=== PATIENT | male | born 1950 | race Caucasian/White ===

== ENCOUNTER → 2017-09-12 | Outpatient (CLI) | payer MEDICARE, OTHER ==
[2015-02-21 19:25] VITALS: BP 122/69
--- NOTE | 2017-09-12 16:01 | RAD ---
Indication: Tobacco use heavy smoker. Technique: PA and lateral views of the chest Comparison: CT chest from 11/04/2015. Findings: Heart is normal in size. Lungs are clear. No pneumothorax or pleural effusion. Visualized bony thorax within normal limits. Impression: No acute cardiopulmonary process. Nodules seen on the previous CT chest from 11/04/2015 may be missed on plain radiograph. Consider CT chest without IV contrast for follow-up of the nodules.
== END | disposition home or self-care (01) ==
LOC: PMG 15:29
PROVIDERS: ATTEND Physician Assistant
DX: R91.1 Solitary pulmonary nodule (principal); I10 Essential (primary) hypertension; F17.200 Nicotine dependence, unspecified, uncomplicated
CPT/HCPCS: 71046

== ENCOUNTER → 2019-01-02 | Outpatient (CLI) | payer MEDICARE, OTHER ==
[2015-02-21 19:25] VITALS: BP 122/69
--- NOTE | 2019-01-02 16:38 | RAD ---
Carotid ultrasound, 01/02/2019: HISTORY: Near syncope Duplex evaluation of the carotid arteries and neck was performed including grayscale, color-flow and spectral Doppler analysis. There is mild smooth plaquing in the common carotid arteries and moderate plaquing at the carotid bifurcations. The plaques are partially calcified. The peak systolic velocity in the right internal carotid artery is 122 cm/s with an end-diastolic velocity of 40 cm/s and an internal carotid to common carotid artery ratio 1.7. These Doppler findings suggest narrowing in the 0-50 percent diameter range. On the left, the peak systolic velocity in the internal carotid artery is 173 cm/s with an end-diastolic velocity of 54 cm/s and an internal carotid to common carotid artery ratio of 2.2. These Doppler findings suggest narrowing in the 50-70 percent diameter range. Antegrade flow is present in both vertebral arteries in the neck. IMPRESSION: Mild to moderate atherosclerotic plaquing at the carotid bifurcations with underlying luminal narrowing of the proximal right internal carotid artery in the 0-50 percent diameter range and narrowing of the proximal left internal carotid artery in the 50-70 percent diameter range. Note: Stenosis calculations for CT, MRA and conventional angiography are based upon determination of the distal ICA diameter in accordance with the NASCET methodology. Stenosis calculations for Doppler studies are derived from validated velocity criteria which are known to correlate with NASCET methodology of determining stenosis. Electronically signed by: Anish Izaguirre MD (01/02/2019 4:35 PM) [facility]
== END | disposition home or self-care (01) ==
LOC: US 14:35
PROVIDERS: ATTEND Physician Assistant
DX: I65.23 Occlusion and stenosis of bilateral carotid arteries (principal); Z86.79 Personal history of other diseases of the circulatory system
CPT/HCPCS: 93880

== ENCOUNTER 2019-03-10 17:32 | Observation (INO) | payer MEDICARE, OTHER ==
[~2019-03-10] VITALS: Ht 175.3 cm; Wt 85.3 kg
--- NOTE | 2019-03-10 17:59 | PHYS DOC ---
Past History Past Medical History: Hypertension, Seizure (JOSE LENZ DO) Past Surgical History: No Surgical History (JOSE LENZ DO) Alcohol Use: Occasionally Drug Use: None (JOSE LENZ DO) Adult General Chief Complaint Chief Complaint: SEIZURE HPI HPI Patient is a 68-year-old male brought in by EMS due to reported seizure. EMS arrived, patient felt like he was going to black out while sitting on the EMS cot, and had another seizure in front of them that lasted approximately 10 seconds. As the patch machine operator was trying to get benzodiazepines, patient seizure stopped, and he was awake very quickly. He did have some shaking of all 4 extremities. There was no loss of bowel or bladder control. Patient was in the heat today, no significant exertion. He was also drinking several beers. Prior to the first seizure today, he felt like he was going to black out while sitting in the heat, and so went inside. He was witnessed to be going down and was caught by bystanders. There was no head injury. He denies any headache, focal weakness, nor change in vision. He does have a history of one previous seizure approximately a year ago. He is not currently on any antiseizure medicines. No recent changes in medicines. Denies any chest pain or palpitations.[] (JOSE LENZ DO) Review of Systems Review of Systems Constitutional: Denies fever or chills [] Eyes: Denies change in visual acuity, redness, or eye pain [] HENT: Denies nasal congestion or sore throat [] Respiratory: Denies cough or shortness of breath [] Cardiovascular: No chest pain or palpitations[] GI: Denies abdominal pain, nausea, vomiting, bloody stools or diarrhea [] : Denies dysuria or hematuria [] Musculoskeletal: Denies back pain or joint pain [] Integument: Denies rash or skin lesions [] Neurologic: Denies headache, focal weakness or sensory changes, see history of present illness [] Endocrine: Denies polyuria or polydipsia [] All other systems were reviewed and found to be within normal limits, except as documented in this note. (JOSE LENZ DO) Allergies Allergies Allergies Coded Allergies Type Severity Reaction Last Updated Verified No Known Drug Allergies 02/24/15 No (JOSE LENZ DO) Physical Exam Physical Exam Constitutional: Well developed, well nourished, no acute distress, non-toxic appearance. [] HENT: Normocephalic, atraumatic, bilateral external ears normal, oropharynx moist, no oral exudates, nose normal. [] Eyes: PERRLA, EOMI, conjunctiva normal, no discharge. [] Neck: Normal range of motion, no tenderness, supple, no stridor. [] Cardiovascular:Heart rate regular rhythm, no murmur [] Lungs & Thorax: Bilateral breath sounds clear to auscultation [] Abdomen: Bowel sounds normal, soft, no tenderness, no masses, no pulsatile masses. [] Skin: Warm, dry, no erythema, no rash. [] Back: No tenderness, no CVA tenderness. [] Extremities: No tenderness, no cyanosis, no clubbing, ROM intact, no edema. [] Neurologic: Alert and oriented X 3, normal motor function, normal sensory function, no focal deficits noted. [] Psychologic: Affect normal, judgement normal, mood normal. [] ([facility] Current Patient Data Vital Signs Vital Signs Date Time Temp Pulse Resp B/P (MAP) Pulse Ox O2 Delivery O2 Flow Rate FiO2 03/10/19 17:32 98.0 88 16 97 Room Air ([facility]) EKG EKG EKG shows a sinus rhythm at 83 bpm, normal axis, normal QTC at 426 ms, occasional premature atrial contraction, no ST elevations. No acute changes when compared with EKG of 02/21/2015. Interpreted by me at 1744.[] [facility] Radiology/Procedures Radiology/Procedures [] ([facility]) Impressions: CT head without contrast dated 03/10/2019. COMPARISON: None. Clinical indication: Syncopal event. Possible seizure. Weakness. TECHNIQUE: Contiguous axial imaging the head performed from skull base to vertex. No contrast administered. One or more of the following individualized dose reduction techniques were utilized for this examination: 1. Automated exposure control 2. Adjustment of the mA and/or kV according to patient size 3. Use of iterative reconstruction technique. FINDINGS: Ventricles and sulci are mildly prominent for age. No midline shift or mass effect. Brain parenchyma is of normal attenuation. No hemorrhage or extra-axial collection. Posterior fossa and brainstem unremarkable. Minimal mucosal thickening of the bilateral ethmoid air cells. The visualized paranasal sinuses and mastoid air cells are otherwise clear. No apparent calvarial abnormality. IMPRESSION: 1. No evidence of acute intracranial hemorrhage or mass. 2. Mild atrophy for age. Electronically signed by: Shawn Beltran MD (03/10/2019 6:10 PM) [facility] DICTATED AND SIGNED BY: SHAWN BELTRAN MD DATE: 03/10/19 1810 CC: WILMA MCKEON DO; JOSE LENZ DO; LINDA LUCERO ~ Single view chest dated 03/10/2019. Comparison made to 09/12/2017. CLINICAL INDICATION: Syncope. FINDINGS: Single upright portable exam performed. Heart and mediastinal contours are stable. Lungs are somewhat hyperinflated but otherwise clear. No consolidation or pleural effusion. No pneumothorax. IMPRESSION: No acute radiographic abnormality. Stable findings compared to 09/12/2017. Electronically signed by: Shawn Beltran MD (03/10/2019 6:39 PM) [facility] DICTATED AND SIGNED BY: SHAWN BELTRAN MD DATE: 03/10/19 1839 CC: WILMA MCKEON DO; JOSE LENZ DO; LINDA LUCERO ~ (WILMA MCKEON DO) Course & Med Decision Making Course & Med Decision Making Pertinent Labs and Imaging studies reviewed. (See chart for details) ED course: Patient arrived, was placed in bed, and tolerated exam well. At the time of this dictation laboratory and imaging studies are pending along with orthostatic vital signs. Patient care was endorsed to Dr. Mckeon at 1800 with these studies in progress.[] (JOSE LENZ DO) Course & Med Decision Making The patient's labs are remarkable for a hemoglobin of 9.9 and a lactic acid of 3.5. His only hemoglobin for comparison was 4 years ago and it was normal at 13.5. The patient has gotten 2 L of fluid. I spoke with Dr. Ramos, the neurologist and he would like the patient admitted. He has not requested a loading dose of seizure medicine as this case could be syncope versus seizure. I spoke with Dr. Jimenez and he has accepted the patient for admission. Patient is in agreement with admission. (WILMA MCKEON DO) Dragon Disclaimer Dragon Disclaimer This electronic medical record was generated, in whole or in part, using a voice recognition dictation system. (JOSE LENZ DO) Departure Departure: Impression: Primary Impression: Syncope Disposition: 09 ADMITTED INPATIENT Admitting Physician: Seth Jimenez (WILMA MCKEON DO) Referrals: LINDA LUCERO (PCP) Problem Qualifiers Primary Impression: Syncope Syncope type: unspecified Qualified Codes: R55 - Syncope and collapse JOSE LENZ DO Mar 10, 2019 17:59 WILMA MCKEON DO Mar 10, 2019 19:06
[2019-03-10] MEDS ORDERED: IV NORMAL SALINE 1,000ML 1,000 ML IV ONE (18:00)
[2019-03-10 18:02] LABS: BASO # 0.1 x10^3/uL (0.0-0.2); BASO % 1 % (0-3); EOS # 0.3 x10^3/uL (0.0-0.7); EOS % 3 % (0-3); HEMATOCRIT 31.6 % (39.0-53.0); HEMOGLOBIN 9.9 g/dL (13.0-17.5); LYMPH # 2.5 x10^3/uL (1.0-4.8); LYMPH % 25 % (24-48); MEAN CORPUSCULAR HEMOGLOBIN 25 pg (25-35); MEAN CORPUSCULAR HGB CONC 31 g/dL (31-37); MEAN CORPUSCULAR VOLUME 81 fL (79-100); MONO % 10 % (0-9); NEUT # 6.3 x10^3uL (1.8-7.7); NEUT % 62 % (31-73); PLATELET COUNT 406 x10^3/uL (140-400); RED BLOOD COUNT 3.92 x10^6/uL (4.30-5.70); RED CELL DISTRIBUTION WIDTH 20.3 % (11.5-14.5); WHITE BLOOD COUNT 10.2 x10^3/uL (4.0-11.0)
--- NOTE | 2019-03-10 18:12 | RAD ---
CT head without contrast dated 03/10/2019. COMPARISON: None. Clinical indication: Syncopal event. Possible seizure. Weakness. TECHNIQUE: Contiguous axial imaging the head performed from skull base to vertex. No contrast administered. One or more of the following individualized dose reduction techniques were utilized for this examination: 1. Automated exposure control 2. Adjustment of the mA and/or kV according to patient size 3. Use of iterative reconstruction technique. FINDINGS: Ventricles and sulci are mildly prominent for age. No midline shift or mass effect. Brain parenchyma is of normal attenuation. No hemorrhage or extra-axial collection. Posterior fossa and brainstem unremarkable. Minimal mucosal thickening of the bilateral ethmoid air cells. The visualized paranasal sinuses and mastoid air cells are otherwise clear. No apparent calvarial abnormality. IMPRESSION: 1. No evidence of acute intracranial hemorrhage or mass. 2. Mild atrophy for age. Electronically signed by: Shawn Beltran MD (03/10/2019 6:10 PM) [facility]
[2019-03-10 18:22] LABS: ALBUMIN 3.3 g/dL (3.4-5.0); ALBUMIN/GLOBULIN RATIO 0.8 (1.0-1.7); CALCIUM 8.8 mg/dL (8.5-10.1); CREATININE 0.9 mg/dL (0.7-1.3); GFR 83.4; POTASSIUM 3.4 mmol/L (3.5-5.1); TOTAL BILIRUBIN 0.2 mg/dL (0.2-1.0); TOTAL PROTEIN 7.3 g/dL (6.4-8.2)
--- NOTE | 2019-03-10 18:42 | RAD ---
Single view chest dated 03/10/2019. Comparison made to 09/12/2017. CLINICAL INDICATION: Syncope. FINDINGS: Single upright portable exam performed. Heart and mediastinal contours are stable. Lungs are somewhat hyperinflated but otherwise clear. No consolidation or pleural effusion. No pneumothorax. IMPRESSION: No acute radiographic abnormality. Stable findings compared to 09/12/2017. Electronically signed by: Shawn Beltran MD (03/10/2019 6:39 PM) [facility]
[2019-03-10 20:54] LABS: BILIRUBIN,URINE NEG (NEG); CLARITY,URINE CLEAR; COLOR,URINE STRAW; GLUCOSE,URINE NEG (NEG)
[2019-03-10 20:55] LABS: BACTERIA,URINE 0 /HPF (0-FEW); NITRITE,URINE NEG (NEG); RBC,URINE 0 /HPF (0-2); SQUAMOUS EPITHELIAL CELL,UR OCC /LPF; UROBILINOGEN,URINE 0.2 mg/dL (0.2 mg/dL); WBC,URINE OCC /HPF (0-4)
[2019-03-10 22:15] VITALS: BP 174/76
[2019-03-10 22:51] LABS: ANISOCYTOSIS SLIGHT; PLT ESTIMATE INCREASED (ADEQUATE)
[2019-03-11 05:52] VITALS: BP 150/75
[2019-03-11] MEDS ORDERED: POTASSIUM CHLORIDE 20 MEQ TABLET.ER. PO ONE (07:30)
[2019-03-11 07:41] LABS: CALCIUM 8.6 mg/dL (8.5-10.1); CREATININE 0.7 mg/dL (0.7-1.3); GFR 111.5
[2019-03-11] MEDS ORDERED: ASPIRIN 81 MG TAB.CHEW PO SCH (08:00)
[2019-03-11] MEDS ORDERED: LISINOPRIL 5 MG TABLET. PO SCH (09:00)
[2019-03-11 10:36] VITALS: BP 120/68
[2019-03-11 15:02] VITALS: BP 143/55
[2019-03-11] MEDS ORDERED: LISI-338 PO (15:05)
[2019-03-11] MEDS ORDERED: ATOR10TA PO (15:05)
[2019-03-11] MEDS ORDERED: ASPI-630 PO (15:05)
--- NOTE | 2019-03-11 16:17 | SSS ---
ADMIT DATE: 03/11/2019 HISTORY OF PRESENT ILLNESS: The patient is a 68-year-old male patient, who came to the Emergency Room, who was brought to the Emergency Room due to a report of seizures and the emergency medical service personnel arrived. When they arrived, the patient felt like he was going to pass out while sitting on the EMS cot and had another seizure in front of them that lasted approximately 10 seconds. As the outbound telemarketing representative was trying to get benzodiazepine, patient's seizures stopped. He was awake very quickly. He did have some shaking of all 4 extremities. There was no loss of bowel or bladder control. He was in the heat today. No significant exertion. He was also drinking several beers. Prior to the first seizure today, he felt like he was going to black out while sitting in the heat and so went inside. He was noted to be going down and was caught by the bystanders. There was no head injury. He denies any headache, focal weakness or change in vision. He does have a history of 1 previous seizure approximately a year ago. At that time, he was not on any anti-seizure medication. He has no changes in medication. Denied any chest pain or palpitation. He was extensively investigated in the Emergency Room including lab work and had a CT scan of the head and a chest x-ray. PAST MEDICAL HISTORY: Significant for hypertension, hyperlipidemia, generalized osteoarthritis, benign prostatic hypertrophy. PAST SURGICAL HISTORY: Significant for left total hip arthroplasty, had colonoscopy x 3 and sigmoidoscopy once. ALLERGIES: He has no known drug allergies. MEDICATIONS: He is currently on following medications: He is on atorvastatin 10 mg at bedtime, lisinopril 5 mg once a day and aspirin 81 mg once a day. FAMILY HISTORY: He has no brothers or sisters. His father in his 50s due to myocardial infarction. Mother at the age of 85 because of natural causes. SOCIAL HISTORY: He is , has a son and a daughter. He smokes a pack a day, drinks 2-3 beers per day, does not use any drugs. 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 PHYSICAL EXAMINATION: GENERAL: When I examined him this afternoon, he looked well and was clearly in no apparent respiratory distress, slightly pale, but no jaundice, cyanosis, or thyromegaly. No jugular venous distension. No limb edema. VITAL SIGNS: His heart rate was 80, blood pressure was 120/68, temperature was 98, respiratory rate was 20, and oxygen saturation was 97%. HEAD, EYES, EARS, NOSE AND THROAT: Normocephalic, atraumatic. NECK: Supple. HEART: Showed normal first and second heart sounds. No gallop, rub or murmur. CHEST: Clear to auscultation. No crepitation or rhonchi. ABDOMEN: Distended, soft, nontender. No guarding or rigidity. No organomegaly. All hernial orifices intact. Bowel sounds normal. NEUROLOGIC: He was awake, alert, responding appropriately. All cranial nerves intact. EXTREMITIES: He moves extremities without difficulty. He ambulates without assistance or assistive devices. LABORATORY DATA: Showed a white cell count of 10,000, hemoglobin 10, hematocrit 31, MCV 81 and platelet count 406,000 with normal manual differential. His chemistry showed a serum sodium of 139, potassium 3.4, chloride 102, bicarbonate 25, anion gap of 12, BUN of 12, creatinine 0.9, estimated GFR was 83 mL per minute, his glucose was 103, calcium was 8.8, magnesium 2. Total bilirubin, AST, ALT, alkaline phosphatase were normal. His total protein was 7.3, albumin 3.3. His prothrombin time was 9.8, INR of 0.9. His urinalysis is unremarkable. Toxic screen showed blood alcohol level was less than 10. CT scan of the head showed that the patient has no evidence of acute intracranial hemorrhage or mass effect; [id number] atrophy, appropriate for age. Chest x-ray showed that there is no acute radiographic abnormality, stable finding compared to 09/22/2017. The patient was seen by the neurologist who recommended that he can be discharged to follow up with his office for an outpatient EEG. He was discharged to continue his atorvastatin 10 mg at bedtime, lisinopril 5 mg once a day and aspirin 81 mg once a day. FINAL DISCHARGE DIAGNOSES: Syncopal episode, hypertension and hyperlipidemia. SABI ANDINO MD DR: STEFANIA/marnie JOB#: [id number] / [id number]
[2019-03-11] MEDS ORDERED: ATORVASTATIN CALCIUM 10 MG TABLET. PO SCH (21:00)
--- NOTE | 2019-03-11 21:56 | CONS ---
DATE OF CONSULTATION: NEUROLOGY CONSULTATION REFERRING PHYSICIAN: Dr. Jimenez. REASON FOR CONSULTATION: Syncope versus seizure. HISTORY OF PRESENT ILLNESS: This is a 68-year-old right-handed male who was admitted to Emergency Room after he presented with 2 recurrent spells described as possible seizure-like activities. According to the patient, he was walking in heat after he drank 2 beers and all of a sudden he felt strange as he was going to pass out. The patient apparently lost his consciousness for 3 minutes. The patient recalls going to pass out, but he came to without prolonged postictal confusion or disorientation. The patient went inside and had another spell that lasted 10 seconds. The patient did not recall that spell, but he came to without postictal confusion and disorientation. He denies any bowel or bladder control. The patient denies any headaches, visual disturbances, nausea, vomiting, chest pain, shortness of breath, or palpitation or any other symptoms preceding the fall. EMS was activated and witnessed the second seizure-like activities, described as tremor of all upper and lower extremities. The seizure stopped before they gave him benzodiazepine. Since admission, the patient has not had any recurrent seizure. Initial nonenhanced head CT scan revealed no evidence of acute intracranial process. Chest x-ray revealed no significant cardiopulmonary process. The patient stated he had history of seizure activities a few years ago and he related that to dehydration. 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 History of hypertension and hyperlipidemia. PAST SURGICAL HISTORY: Status post left hip replacement. SOCIAL HISTORY: The patient lives with his son. He is retired . He drinks alcohol, 4-5 beers daily. He smokes cigarettes. He denies illegal drug use. FAMILY HISTORY: Positive for dementia. Mother had breast cancer and coronary artery disease. CURRENT HOME MEDICATIONS: Aspirin 81 mg daily, lisinopril 5 mg p.o. daily, Lipitor 10 mg at bedtime. ALLERGIES: No known drug allergies. REVIEW OF SYSTEMS: A 10-point review of system was performed as mentioned above in the history of present illness. PHYSICAL EXAMINATION: GENERAL: A well-developed, well-nourished male, not in acute distress. He weighs 85.3 kilos. VITAL SIGNS: Blood pressure 150/75, respiratory rate is 16, pulse is 87 and regular, temperature 98.6, oxygen saturation 94% on room air. HEENT: Normocephalic, atraumatic, otherwise unremarkable. NECK: Supple. Negative for carotid bruit, lymphadenopathy or thyromegaly. LUNGS: Clear to A and P. CARDIOVASCULAR: Regular rate and rhythm, normal S1, S2. There is no S3, S4 or murmur. ABDOMEN: Soft. Bowel sounds positive. EXTREMITIES: Negative for cyanosis, clubbing or pitting edema. NEUROLOGIC: Mental status: The patient is alert and oriented x 3. The speech is fluent. There is no language dysfunction. Memory, judgment, and abstracting thinking are normal. The patient denies hallucination or delusion. CRANIAL NERVES: Visual ovalle are full. The pupils are reactive to light and accommodation. The extraocular movements are intact. There is no nystagmus. There is no facial motor or sensory deficit. Hearing is intact bilaterally. The palate is elevated symmetrically. Sternocleidomastoid muscles are powerful bilaterally. The patient shrugs his shoulders symmetrically and protrudes his tongue in the midline without fasciculation or atrophy. MOTOR: No focal muscle bulk is seen. The tone is normal. The strength is 5/5 throughout. SENSORY: Examination reveals normal pinprick, light touch, vibratory and position senses. Deep tendon reflexes were symmetric and active with absent Achilles responses. Gait and coordination were normal. LABORATORY DATA: CBC revealed white blood cells of 10,200, hemoglobin 9.9, hematocrit 31.6, platelet count 409,000. Chemistry revealed sodium of 139, potassium 4, chloride 103, CO2 of 25, BUN 8, creatinine 0.7, glucose 91, calcium 8.6, lactic acid is 1.2, troponin level is normal. Urinalysis is negative for urinary tract infections. Urine drug screen is negative. IMPRESSION: 1. Possible breakthrough seizure versus syncope. 2. History of multiple medical problems includes possible early coronary artery disease, hypertension, anemia. 3. Alcohol abuse. RECOMMENDATIONS: 1. We will arrange for an EEG to be done on outpatient. 2. The patient should not drive until the EEG is completed and rule out seizure. 3. Alcohol and smoking cessation. 4. Continue with current management which was initiated by Dr. Jimenez. M Ryan PALMER MD DR: NAN/marnie JOB#: [id number] / [id number]
== END 2019-03-11 15:40 | disposition home or self-care (01) ==
LOC: ER 17:32 → 1 SOUTH 19:47 → INTOOBSV 19:47
PROVIDERS: ADMIT Internal Medicine; ATTEND Internal Medicine
DX: R55 Syncope and collapse (principal); I10 Essential (primary) hypertension; E78.5 Hyperlipidemia, unspecified; N40.0 Benign prostatic hyperplasia without lower urinary tract symptoms; M15.9 Polyosteoarthritis, unspecified; Z96.642 Presence of left artificial hip joint; Z82.49 Family history of ischemic heart disease and other diseases of the circulatory system; Z80.3 Family history of malignant neoplasm of breast; F17.210 Nicotine dependence, cigarettes, uncomplicated; F10.10 Alcohol abuse, uncomplicated
CPT/HCPCS: 36415; 70450; 71045; 80048; 80053; 81001; 82550; 83605; 83735; 83880; 84484; 85025; 85610; 93005; 96360; 99284; G0378; G0480; 96361; G0379; 99285-25; J7030

== ENCOUNTER 2019-06-11 18:35 | Emergency (ER) | payer MEDICARE, OTHER ==
[~2019-06-11 18:35] MED LIST: ASPI-630 PO; ATOR10TA PO; LISI-338 PO
[2019-06-11 18:51] VITALS: BP 126/60
--- NOTE | 2019-06-11 20:08 | PHYS DOC ---
Past History Past Medical History: CAD, Hypertension Past Surgical History: No Surgical History Additional Smoking Information: 1PPD Alcohol Use: None Drug Use: None Adult General Chief Complaint Chief Complaint: SYNCOPE HPI HPI Patient is a 69 year old male who presents to the emergency department for evalu ation after having 2 reported syncope episodes prior to arrival. The patient was at a local bar and was seated at the time when he felt symptoms coming on. The patient states that he started to feel darkness and tunneling of vision while seated. States that he has had this before in the past and knew that he may pass out. He states he put his head down on his arm and states that that the last thing he remembers. Ambulance was called and patient was brought to the emergency department for further evaluation. Patient noted to be unconscious for approximately 1 minute before regaining consciousness. EMS notes the patient had a second episode while transporting into the ambulance from the scene. At this time patient states that he feels at his baseline and is having no complaints or problems. States that he has had history of recurrent syncope and states that this episode is very similar to what he has had over the past 3 years. States that he has follow-up with both Dr. Chau of cardiology and Dr. Ramos of neurology for evaluation and testing. Denies any associated shortness of breath or chest pain with symptoms. Review of Systems Review of Systems Constitutional: Denies fever or chills [] Eyes: Denies change in visual acuity, redness, or eye pain [] HENT: Denies nasal congestion or sore throat [] Respiratory: Denies cough or shortness of breath [] Cardiovascular: Syncope, denies chest pain or edema[] GI: Denies abdominal pain, nausea, vomiting, bloody stools or diarrhea [] : Denies dysuria or hematuria [] Musculoskeletal: Denies back pain or joint pain [] Integument: Denies rash or skin lesions [] Neurologic: Denies headache, focal weakness or sensory changes [] All other systems were reviewed and found to be within normal limits, except as documented in this note. Allergies Allergies Allergies Coded Allergies Type Severity Reaction Last Updated Verified No Known Drug Allergies 02/24/15 No Physical Exam Physical Exam Constitutional: Well developed, well nourished, no acute distress, non-toxic appearance. [] HENT: Normocephalic, atraumatic, bilateral external ears normal, oropharynx moist, no oral exudates, nose normal. [] Eyes: PERRLA, EOMI, conjunctiva normal, no discharge. [] Neck: Normal range of motion, no tenderness, supple, no stridor. [] Cardiovascular:Heart rate regular rhythm, no murmur [] Lungs & Thorax: Bilateral breath sounds clear to auscultation [] Abdomen: Bowel sounds normal, soft, no tenderness, no masses, no pulsatile masses. [] Skin: Warm, dry, no erythema, no rash. [] Back: No tenderness, no CVA tenderness. [] Extremities: No tenderness, no cyanosis, no clubbing, ROM intact, no edema. [] Neurologic: Alert and oriented X 3, normal motor function, normal sensory function, no focal deficits noted. [] Psychologic: Affect normal, judgement normal, mood normal. [] Current Patient Data Vital Signs Vital Signs Date Time Temp Pulse Resp B/P (MAP) Pulse Ox O2 Delivery O2 Flow Rate FiO2 06/11/19 18:51 98.4 84 16 99 Room Air Lab Results Laboratory Tests Test 06/11/19 20:35 White Blood Count 11.8 x10^3/uL Red Blood Count 4.46 x10^6/uL Hemoglobin 11.9 g/dL Hematocrit 37.1 % Mean Corpuscular Volume 83 fL Mean Corpuscular Hemoglobin 27 pg Mean Corpuscular Hemoglobin Concent 32 g/dL Red Cell Distribution Width 23.3 % Platelet Count 340 x10^3/uL Neutrophils (%) (Auto) 80 % Lymphocytes (%) (Auto) 12 % Monocytes (%) (Auto) 7 % Eosinophils (%) (Auto) 1 % Basophils (%) (Auto) 0 % Neutrophils # (Auto) 9.5 x10^3uL Lymphocytes # (Auto) 1.4 x10^3/uL Monocytes # (Auto) 0.8 x10^3/uL Eosinophils # (Auto) 0.1 x10^3/uL Basophils # (Auto) 0.0 x10^3/uL Platelet Estimate Pending Sodium Level 133 mmol/L Potassium Level 3.9 mmol/L Chloride Level 98 mmol/L Carbon Dioxide Level 25 mmol/L Anion Gap 10 Blood Urea Nitrogen 18 mg/dL Creatinine 1.0 mg/dL Estimated GFR (Cockcroft-Gault) 73.7 BUN/Creatinine Ratio 18 Glucose Level 96 mg/dL Calcium Level 8.8 mg/dL Magnesium Level 2.2 mg/dL Total Bilirubin 0.2 mg/dL Aspartate Amino Transf (AST/SGOT) 25 U/L Alanine Aminotransferase (ALT/SGPT) 27 U/L Alkaline Phosphatase 68 U/L Total Protein 7.9 g/dL Albumin 3.5 g/dL Albumin/Globulin Ratio 0.8 Current Medications Medications (Trade) Dose Ordered Sig/Regine Route PRN Reason Start Time Stop Time Status Last Admin Dose Admin Sodium Chloride 500 ml @ 0 mls/hr 1X ONCE IV 06/11/19 20:15 06/11/19 20:16 DC 06/11/19 20:15 EKG EKG Interpreted by me: Heart rate 83, sinus rhythm, leftward axis, no acute ST/T- wave abnormalities present[] Radiology/Procedures Radiology/Procedures [address] [address] IMAGING REPORT Signed PATIENT: PREET DEXTER ACCOUNT: [id number] : 1950 LOCATION: ER AGE: 69 SEX: M EXAM STATUS: REG ER ORD. PHYSICIAN: RODY PETERSON MD REASON: Syncope Hx: CAD, HTN PROCEDURE: PORTABLE CHEST 1V PORTABLE CHEST 1V History: Syncope. Comparison: March 10, 2019 Findings: Interstitial thickening. No consolidation or pleural effusion. Normal heart size. No pneumothorax. Impression: 1. Bilateral interstitial thickening, likely related to chronic interstitial changes, unchanged. No new consolidation. Electronically signed by: Dwain Babb DO (06/11/2019 8:41 PM) [facility] DICTATED AND SIGNED BY: DWAIN BBAB DO DATE: 06/11/192040 CC: RODY PETERSON MD; LINDA LUCERO ~ [] Course & Med Decision Making Course & Med Decision Making Pertinent Labs and Imaging studies reviewed. (See chart for details) Patient was observed in the emergency department with no further episodes of syncope. Patient able to ambulate without difficulty. Patient was given 500 mL of IV fluids. Patient states that he is feeling even better than when he initially presented to the emergency department. Patient's syncope episodes appear to be a recurrent long-standing issue that has had extensive workup in the past by both neurology and cardiology. Patient at this time appears stable and appropriate for discharge. Recommended follow-up with cardiology in the next 3 days for reevaluation. Advised return to emergency department for any worsening symptoms. Patient was understanding and in agreement with treatment plan.[] Dragon Disclaimer Dragon Disclaimer This electronic medical record was generated, in whole or in part, using a voice recognition dictation system. Departure Departure: Impression: Primary Impression: Syncope Disposition: HOME, SELF-CARE Condition: IMPROVED Referrals: LINDA LUCERO (PCP) Patient Instructions: Syncope Additional Instructions: Follow-up with Dr. Chau in the next 3 days for reevaluation. Return to the emergency department for any worsening symptoms. Problem Qualifiers Primary Impression: Syncope Syncope type: unspecified Qualified Codes: R55 - Syncope and collapse RODY PETERSON MD Jun 11, 2019 20:08
[2019-06-11] MEDS ORDERED: IV NORMAL SALINE 500ML 500 ML IV ONE (20:15)
--- NOTE | 2019-06-11 20:44 | RAD ---
PORTABLE CHEST 1V History: Syncope. Comparison: March 10, 2019 Findings: Interstitial thickening. No consolidation or pleural effusion. Normal heart size. No pneumothorax. Impression: 1. Bilateral interstitial thickening, likely related to chronic interstitial changes, unchanged. No new consolidation. Electronically signed by: Dwain Babb DO (06/11/2019 8:41 PM) [facility]
[2019-06-11 20:57] LABS: BASO % 0 % (0-3); EOS # 0.1 x10^3/uL (0.0-0.7); EOS % 1 % (0-3); HEMATOCRIT 37.1 % (39.0-53.0); HEMOGLOBIN 11.9 g/dL (13.0-17.5); LYMPH # 1.4 x10^3/uL (1.0-4.8); LYMPH % 12 % (24-48); MEAN CORPUSCULAR HEMOGLOBIN 27 pg (25-35); MEAN CORPUSCULAR HGB CONC 32 g/dL (31-37); MEAN CORPUSCULAR VOLUME 83 fL (79-100); MONO # 0.8 x10^3/uL (0.0-1.1); MONO % 7 % (0-9); NEUT # 9.5 x10^3uL (1.8-7.7); NEUT % 80 % (31-73); PLATELET COUNT 340 x10^3/uL (140-400); RED BLOOD COUNT 4.46 x10^6/uL (4.30-5.70); RED CELL DISTRIBUTION WIDTH 23.3 % (11.5-14.5); WHITE BLOOD COUNT 11.8 x10^3/uL (4.0-11.0)
[2019-06-11 21:04] LABS: ALBUMIN 3.5 g/dL (3.4-5.0); ALBUMIN/GLOBULIN RATIO 0.8 (1.0-1.7); CALCIUM 8.8 mg/dL (8.5-10.1); GFR 73.7; MAGNESIUM 2.2 mg/dL (1.8-2.4); POTASSIUM 3.9 mmol/L (3.5-5.1); TOTAL BILIRUBIN 0.2 mg/dL (0.2-1.0); TOTAL PROTEIN 7.9 g/dL (6.4-8.2)
[2019-06-11 22:47] LABS: ANISOCYTOSIS SLIGHT; PLT ESTIMATE ADEQUATE (ADEQUATE); POLYCHROMASIA SLIGHT
--- NOTE | 2019-06-12 01:58 | EKG ---
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
== END 2019-06-11 22:05 | disposition home or self-care (01) ==
LOC: ER 18:35
DX: R55 Syncope and collapse (principal); I25.10 Atherosclerotic heart disease of native coronary artery without angina pectoris; I10 Essential (primary) hypertension; F17.200 Nicotine dependence, unspecified, uncomplicated
CPT/HCPCS: 36415; 71045; 80053; 83735; 85025; 93005; 96360; 99285; J7040

== ENCOUNTER → 2020-01-28 | Outpatient (CLI) | payer MEDICARE, OTHER ==
--- NOTE | 2020-01-28 12:30 | RAD ---
MR#: [id number] Date of Study: 01/28/2020 Ordering Physician: GONZALEZ CHAU, Referring Physician: GONZALEZ CHAU, Tech: Jeni Lind RVT,[facility] APPROVED REPORT Patient Location: OUT-PATIENT Laterality:Bilateral Indications Grayscale images of the bilateral common carotid and carotid bulbs revealed mild to moderate plaque. On the right side there is overall 0 to 50% stenosis suggestive of near normal velocities and no crit ical disease. The vertebral velocities are antegrade. Normal ICA to CCA ratios. On the left there is a moderate 50 to 69% stenosis based on velocity criteria in the internal carotid artery. The vert ebral velocities are antegrade. Otherwise no high-grade disease is noted. Left-sided ICA to CCA rat io is 2.1. Risk Factors Hypertension: Smoking Doppler Spectral Velocity Analysis Right Left pCCA 75/13 cm/spCCA 125/21 cm/s mCCA 93/17 cm/smCCA 103/19 cm/s dCCA 77/18 cm/sdCCA 85/18 cm/s ECA 140/26 cm/sECA 137/21 cm/s pICA 101/27 cm/spICA 216/46 cm/s Alec 116/32 cm/smICA 164/34 cm/s dICA 50/13 cm/sdICA 112/34 cm/s Vert. 40/9 cm/sVert. 64/15 cm/s ICA/CCA 1.25ICA/CCA 1.73 Critical Notification Critical Value: No <Conclusion> 1. Moderate left internal carotid artery disease. Otherwise no critical stenosis Signed by : Gonzalez Chau, Electronically Approved : 01/28/2020 12:29:45
== END ==
LOC: US 10:37
PROVIDERS: ATTEND Internal Medicine Cardiovascular Disease
DX: I73.9 Peripheral vascular disease, unspecified (principal); I77.89 Other specified disorders of arteries and arterioles; I65.23 Occlusion and stenosis of bilateral carotid arteries
CPT/HCPCS: 93880

== ENCOUNTER → 2021-01-12 | Outpatient (CLI) | payer MEDICARE, OTHER ==
[~2021-01-12] MED LIST changes: -LISI-338 PO; +LISI-517 PO
--- NOTE | 2021-01-12 16:29 | RAD ---
XR CERVICAL SPINE 4-5V History: Radicular left arm pain. Comparison: None. Technique: 5 views of the cervical spine. Findings: There are 7 non-rib bearing cervical vertebral segments. There is no evidence for fracture. Alignment is normal. No destructive osseous lesions are seen. Multilevel facet hypertrophy greatest on the right at C2-C3 and C3-C4. [place] cervical degenerative disc disease with prominent anterior osteophytes and disc height loss C4-T1 . Uncovertebral hypertrophy and disc height loss cause osseous foraminal stenosis bilaterally at C5-C 6. Left greater than right carotid bulb calcifications. IMPRESSION: 1. Multilevel cervical spondylosis with potential for symptomatic stenoses at multiple levels, parti cularly C5-C6. Electronically signed by: Sachin Galloway MD (01/12/2021 4:26 PM) [facility]
== END ==
LOC: PMG 13:40
PROVIDERS: ATTEND Physician Assistant
DX: M47.22 Other spondylosis with radiculopathy, cervical region (principal); M51.34 Other intervertebral disc degeneration, thoracic region; M25.78 Osteophyte, vertebrae
CPT/HCPCS: 72050

== ENCOUNTER → 2021-11-10 | Outpatient (CLI) | payer MEDICARE, OTHER ==
[~2021-11-10] MED LIST changes: -LISI-517 PO; +LISI5TAB15 PO
--- NOTE | 2021-11-10 12:14 | RAD ---
MR#: [id number] Date of Study: 11/10/2021 Ordering Physician: GONZALEZ CHAU, Referring Physician: GONZALEZ CHAU, Tech: Jeni Lind RVT,[facility] APPROVED REPORT Patient Location: OUT-PATIENT Indications AAA The proximal abdominal aorta was not well-visualized due to bowel gas. The mid and distal abdominal aorta did not demonstrate any significant evidence of aneurysm. No obstructive disease is noted. Th e bilateral common iliac arteries are grossly within normal size and no significant stenosis is noted based on velocity criteria Risk Factors Hypertension Smoking Duplex Results A/PTransverseLongitudinal Mid Aorta 1.6cm1.5cm Distal Aorta 1.9cm1.9cm Rt. Common Iliac Artery0.7cm1.0cm Lt. Common Iliac Artery 1.1cm1.1cm Doppler VelocityWaveform Aorta Mid. 105.9 cm/sec Distal Aorta 100.0 cm/sec Rt. Common Iliac Gambvi148.0 cm/sec Lt. Common Iliac Artery 92.0 cm/sec Critical Notification Critical Value: No <Conclusion> 1. No evidence of abdominal aortic aneurysm in the mid to distal aorta. Signed by : Gonzalez Chau, Electronically Approved : 11/10/2021 12:13:33
--- NOTE | 2021-11-11 14:13 | RAD ---
MR#: [id number] Date of Study: 11/10/2021 Ordering Physician: GONZALEZ CHAU, Referring Physician: GONZALEZ CHAU, Tech: Jeni Lind RVT, [place] APPROVED REPORT Patient Location: OUT-PATIENT Laterality:Bilateral Indications Carotid Stenosis Risk Factors Hypertension: Smoking Grayscale images of the bilateral carotid vessels demonstrates moderate diffuse atherosclerosis. On the right side overall there is moderate 50 to 69% stenosis based on velocity criteria involving t he mid internal carotid artery. Normal antegrade vertebral velocities are noted. Normal ICA to CCA ratios are noted. On the left side there is likely greater than 70% stenosis involving the proximal and mid internal ca rotid artery with elevated diastolic velocities as well as a ICA to CCA ratio of greater than [address]ive of overall significant stenosis. Vertebral velocities are antegrade. Doppler Spectral Velocity Analysis Right Left pCCA 104/21 cm/spCCA 131/27 cm/s mCCA 107/19 cm/smCCA 104/25 cm/s dCCA 91/25 cm/sdCCA 102/24 cm/s ECA 125/15 cm/sECA 146/24 cm/s pICA 98/24 cm/spICA 247/77 cm/s Alec 150/52 cm/smICA 199/75 cm/s dICA 89/27 cm/sdICA 114/39 cm/s Vert. 99/24 cm/sVert. 70/22 cm/s ICA/CCA 1.40ICA/CCA 1.89 Critical Notification Critical Value: No <Conclusion> 1. Moderate right-sided carotid arterial disease 2. Greater than 70% stenosis involving the left internal carotid artery. Signed by : Gonzalez Chau, Electronically Approved : 11/11/2021 14:13:02
== END ==
LOC: US 08:48
PROVIDERS: ATTEND Internal Medicine Cardiovascular Disease
DX: I65.23 Occlusion and stenosis of bilateral carotid arteries (principal); Z87.891 Personal history of nicotine dependence
CPT/HCPCS: 76770; 93880

== ENCOUNTER 2021-12-05 08:54 | Emergency (ER) | payer MEDICARE, OTHER ==
[~2021-12-05] VITALS: Ht 175.3 cm; Wt 81.6 kg
[2021-12-05] VITALS (15 sets, daily range): BP systolic 106–126; BP diastolic 59–84
--- NOTE | 2021-12-05 09:16 | PHYS DOC ---
Past History Past Medical History: CAD, Hypertension Past Surgical History: No Surgical History Alcohol Use: None Drug Use: None Adult General HPI HPI Patient is a 71-year-old male with a past medical history of CAD, COPD, hypertension, hyperlipidemia and GERD who presents with a chief complaint of shortness of breath. States over the last 3 days he has had increased dyspnea on exertion, some orthopnea but no PND and mild bilateral leg swelling which is new for him. States that he can usually walk without getting out of breath but gets out of breath and has to stop after a few steps now. Denies any actual chest pain but states he has some discomfort in his chest, centrally with no radiation. Denies any recent travels, traumas, illnesses, fevers, abdominal pain, abdominal distention, nausea, vomiting, diarrhea. States he thinks he had a little bit of bright red blood in his stool/on the toilet paper over the last day and is not aware of any hemorrhoids. Denies any alcohol or drug use. S tates he does still smoke cigarettes. Review of Systems Review of Systems Review of systems otherwise unremarkable except noted in HPI Allergies Allergies Allergies Coded Allergies Type Severity Reaction Last Updated Verified No Known Drug Allergies 02/24/15 No Physical Exam Physical Exam Constitutional: Well developed, well nourished, no acute distress, non-toxic appearance. Appears uncomfortable [] HENT: Normocephalic, atraumatic, bilateral external ears normal, oropharynx moist, no oral exudates, nose normal. [] Eyes: PERRLA, EOMI, conjunctiva normal, no discharge. [] Neck: Normal range of motion, no tenderness, supple, no stridor. [] Cardiovascular: Sinus tachycardia, with her EKG rate of 116, QRS of 104, QTc of 469 no STEMI. Does have some ST depressions in V5 V6 and questionable in leads I, II and aVL. Slight ST elevation in aVR Lungs & Thorax: Tachypneic, mild bilateral respiratory congestion, good air movement and chest rise, no wheeze Abdomen: soft, no tenderness, no distention, no masses, no pulsatile masses. POC fast ultrasound negative. Rectum: Gross blood on digital exam with some red and some dark ,no clots. No tenderness on direct digital exam. No external hemorrhoids or internal hemorrhoids appreciated. [] Skin: Warm, dry, no erythema, no rash, good capillary refill. [] Back: No tenderness, no CVA tenderness. [] Extremities: No tenderness, no cyanosis, no clubbing, ROM intact, mild bilateral 1+ pitting edema Neurologic: Alert and oriented X 3, normal motor function, normal sensory function, able to sit, stand and walk without issue, no focal deficits noted. [] Psychologic: Affect normal, judgement normal, mood normal. [] EKG EKG [] Radiology/Procedures Radiology/Procedures [] Heart Score C/O Chest Pain: Yes HEART Score for Chest Pain: HEART Score for Chest Pain Response (Comments) Value History Moderately Suspicious [address] Depression 2 Age > 65 2 Risk Factors 1 or 2 Risk Factors 1 Total 6 Risk Factors: Risk Factors: DM, Current or recent (<one month) smoker, HTN, HLP, family history of CAD, obesity. Risk Scores: Risk Factors: DM, Current or recent (<one month) smoker, HTN, HLP, family history of CAD, obesity. Course & Med Decision Making Course & Med Decision Making Patient is a 71-year-old male with significant past medical history who presents with some dyspnea on exertion over the last couple of days Vital signs notable for tachycardia. Physical exam noted above. EKG noted above in worrisome for ischemia. Given aspirin. Digital rectal exam notable for gross red blood. Laboratory analysis notable for normocytic anemia, significantly elevated troponin and BNP. Chest x-ray with some pulmonary edema and no air in the abdomen. Given patient's symptoms, physical exam and work-up, concerns for type II IN no heparin given. Patient allergic to contrast so no CT performed. POC ultrasound fast negative. Started blood transfusion with a goal between 8 and 10 given cardiac involvement. Discussed patient with cardiology and hospitalist who agreed and accepted patient to [place]. On the second call to hospitalist Dr. Platt, to ensure GI was consulted. Dr. Platt that he had taking care of the consult. Discussed all findings with patient who agreed to transfer and admission to [place]. [Critical care time 30 minutes.] Dragon Disclaimer Dragon Disclaimer This electronic medical record was generated, in whole or in part, using a voice recognition dictation system. Departure Departure: Impression: Primary Impression: Bright red blood per rectum Additional Impressions: GI bleed Elevated troponin Elevated brain natriuretic peptide (BNP) level Normocytic anemia Type 2 myocardial infarction Disposition: 02 SHORT TERM HOSPITAL Admitting Physician: Other Condition: STABLE Referrals: LINDA LUCERO (PCP) Problem Qualifiers MIGUEL HE MD Dec 05, 2021 09:16
[2021-12-05] MEDS ORDERED: ASPIRIN CHEWABLE 81 MG TABLET. PO ONE (09:30)
[2021-12-05 09:36] LABS: BASO # 0.1 x10^3/uL (0.0-0.2); BASO % 1 % (0-3); EOS % 0 % (0-3); HEMATOCRIT 22.4 % (39.0-53.0); LYMPH # 1.3 x10^3/uL (1.0-4.8); LYMPH % 10 % (24-48); MEAN CORPUSCULAR HEMOGLOBIN 27 pg (25-35); MEAN CORPUSCULAR HGB CONC 31 g/dL (31-37); MEAN CORPUSCULAR VOLUME 87 fL (79-100); MONO # 1.2 x10^3/uL (0.0-1.1); MONO % 9 % (0-9); NEUT # 10.2 x10^3uL (1.8-7.7); NEUT % 80 % (31-73); PLATELET COUNT 386 x10^3/uL (140-400); RED BLOOD COUNT 2.58 x10^6/uL (4.30-5.70); RED CELL DISTRIBUTION WIDTH 18.3 % (11.5-14.5); WHITE BLOOD COUNT 12.7 x10^3/uL (4.0-11.0)
[2021-12-05 09:37] LABS: CALCIUM 8.4 mg/dL (8.5-10.1); CREATININE 1.9 mg/dL (0.7-1.3); GFR 34.9; POTASSIUM 3.4 mmol/L (3.5-5.1)
[2021-12-05 09:38] LABS: HEMOGLOBIN 6.9 g/dL (13.0-17.5)
--- NOTE | 2021-12-05 09:38 | RAD ---
PROCEDURE: XR CHEST 1V.12/05/2021 9:35 AM REASON FOR STUDY: Reason: SOB / Spl. Instructions: / History: . COMPARISON: Study of 06/11/2019. FINDINGS: There is interstitial prominence bilaterally that may indicate edema. There is a small left -sided pleural effusion. The heart appears mildly enlarged, but unchanged. IMPRESSION: Findings suggest pulmonary edema and left-sided pleural effusion. Electronically signed by: Sohail Cooper Jr., MD (12/05/2021 9:35 AM) [id number]
[2021-12-05 09:50] LABS: ALBUMIN/GLOBULIN RATIO 0.7 (1.0-1.7); MAGNESIUM 2.4 mg/dL (1.8-2.4); TOTAL BILIRUBIN 0.5 mg/dL (0.2-1.0); TOTAL PROTEIN 7.5 g/dL (6.4-8.2)
[2021-12-05] MEDS ORDERED: PANTOPRAZOLE IV 40 MG VIAL. IVP ONE (12:30)
[2021-12-05] MEDS ORDERED: TRANEXAMIC ACID 1,000 MG/10 ML VIAL. TOP ONE (14:00)
[2021-12-05] MEDS ORDERED: IV NORMAL SALINE 50ML 50 ML ONE (14:19)
[2021-12-05] MEDS ORDERED: TRANEXAMIC ACID 1,000 MG/10 ML VIAL. IV ONE (14:30)
[2021-12-05] MEDS ORDERED: TRANEXAMIC ACID 1,000 MG in IV NORMAL SALINE 50ML 50 ML IV ONE (14:30)
--- NOTE | 2021-12-05 19:01 | EKG ---
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
== END 2021-12-05 15:23 | disposition short-term general hospital (02) ==
LOC: ER 08:54
DX: K92.2 Gastrointestinal hemorrhage, unspecified (principal); R77.8 Other specified abnormalities of plasma proteins; R79.89 Other specified abnormal findings of blood chemistry; D64.9 Anemia, unspecified; I21.A1 Myocardial infarction type 2; I25.10 Atherosclerotic heart disease of native coronary artery without angina pectoris; I10 Essential (primary) hypertension; J44.9 Chronic obstructive pulmonary disease, unspecified; E78.5 Hyperlipidemia, unspecified; K21.9 Gastro-esophageal reflux disease without esophagitis; Z20.822 Contact with and (suspected) exposure to COVID-19
CPT/HCPCS: 36415; 36430; 71045; 80053; 83735; 83880; 84484; 85025; 85379; 85610; 85730; 86850; 86900; 86901; 86920; 87426; 93005; 96365; 96374; 96375; 99291; C9113; C9803; J3010; P9016; U0003; 99285